=== PATIENT | male | born 1980 | race African-American/Black ===

== ENCOUNTER 2018-07-20 12:33 | Emergency (ER) | payer MEDICAID, OTHER ==
[~2018-07-20] VITALS: Ht 175.3 cm; Wt 67.9 kg
[2018-07-20 12:38] VITALS: BP 148/85
[2018-07-20] MEDS ORDERED: KETOROLAC 30 MG/1 ML ONE (13:44)
[2018-07-20] MEDS ORDERED: KETOROLAC 30 MG/1 ML IM ONE (14:00)
== END 2018-07-20 14:34 | disposition home or self-care (01) ==
LOC: ED 14:00
DX: M25.551 Pain in right hip (principal); Z96.641 Presence of right artificial hip joint
CPT/HCPCS: 71046; 93005; 96372; 99284; J1885